=== PATIENT | female | born 1935 | race Caucasian/White ===

== ENCOUNTER 2019-06-17 13:28 | Inpatient (IN) | payer MEDICARE, OTHER ==
[~2019-06-17] VITALS: Ht 157.5 cm; Wt 103.6 kg
[~2019-06-17 13:28] MED LIST: AMOCLA875 PO; ASPI81CH PO; ATELVIA PO; ATOR80 PO; AZIT500 PO; BACL10 PO; BUME2 PO; BUPR150ER PO; Bumetanide1 MG PO; CARV6.25 PO; CEFU500 PO; CHOL10002 PO; CIPR250 PO; CLON1 PO; CLOP75 PO; CO Q10100 MG PO; Cilostazol50 MG PO; DILT120 PO; DOCSEN PO; DOCU100; DOCU100 PO; ENAL20; FAMO20 PO; FERR325 PO; FISH1000 PO; FURO40 PO; GABA300 PO; GLIM4; HYDACE10B PO; HYDACE5 PO; HYDR1TAB94; HYDR1TAB94 PO; HYOS.125; INSDET100 SQ; INSUASPI SC; IRON PO; IRON150C PO; LANS30EC; LISI5 PO; LOVA20; LOVA20 PO; METO2.5 PO; METO25ER PO; NITR.4SL SL; Novolog100 UNIT/1 SC; OMEG1CAP30 PO; OMEP20ER PO; ONDA4 PO; OXYB5ER PO; PANT40 PO; PARO30; POLY500; POTA10T PO; POTCHL20ER PO; PRELIEF PO; PROM25 PO; Prozac20 MG; ROSI4; SENN187; SIMBRINZA 1%-0.28 ML LEFTEYE; SIMBRINZA 1%-0.28 ML OP; SPIHYD; STOOL SOFTENER100 MG; TAZTIA XT360 MG PO; TRAACE PO; TRAM50 PO; TRAV.004OP BOTHEYES; TRAZ50 PO; Travatan Z5 ML BOTHEYES; UBID100 PO; VALTURNA PO; VENL150ER PO; Ventolin5 MG/1 ML INH; WARF5 PO
[2019-06-17 14:44] LABS: BASOPHILS ABSOLUTE AUTO 0.04 K/mm3 (0.00-0.23); BASOPHILS PERCENT AUTO 1 % (0-2); EOSINOPHILS ABSOLUTE AUTO 0.14 K/mm3 (0.00-0.68); EOSINOPHILS PERCENT AUTO 2 % (0-6); Hemoglobin 14.8 g/dL (11.5-16.0); IMMATURE GRAN ABSOLUTE AUTO 0.01 K/mm3 (0.00-0.10); IMMATURE GRAN PERCENT AUTO 0 % (0-1); LYMPHOCYTES ABSOLUTE AUTO 1.41 K/mm3 (0.84-5.20); LYMPHOCYTES PERCENT AUTO 18 % (21-46); MONOCYTES ABSOLUTE AUTO 0.44 K/mm3 (0.16-1.47); MONOCYTES PERCENT AUTO 6 % (4-13); Mean Corpuscular HGB 30.6 pg (26.0-34.0); Mean Corpuscular HGB Conc 32.9 g/dL (31.5-36.5); Mean Corpuscular Volume 93 fL (80-100); NEUTROPHILS ABSOLUTE AUTO 5.97 K/mm3 (1.96-9.15); NEUTROPHILS PERCENT AUTO 75 % (41-73); Platelet Count 186 K/mm3 (150-400); RDW Coefficient Variation 13.1 % (11.7-14.2); RDW Standard Deviation 44.5 fL (35.1-46.3); Red Blood Cell Count 4.84 M/mm3 (3.80-5.20); White Blood Cell Count 8.01 K/mm3 (4.00-11.30)
[2019-06-17 15:18] LABS: Albumin, Blood 3.5 g/dL (3.4-5.0); Albumin/Globulin Ratio 0.9 (0.8-1.8); Bilirubin, Total 0.4 mg/dL (0.1-1.0); Bun/Creatinine Ratio 56.6 (12.0-20.0); Calcium, Blood 13.8 mg/dL (8.5-10.1); Creatinine, Blood 2.26 mg/dL (0.40-1.00); Total Protein, Blood 7.5 g/dL (6.4-8.2); Troponin I 0.869 ng/mL (0.000-0.040)
[2019-06-17] MEDS ORDERED: SIMBRINZA 1%-0.28 ML RIGHTEYE (15:18)
[2019-06-17] MEDS ORDERED: INSDET100 SC (15:21)
[2019-06-17] MEDS ORDERED: NEURONTIN300 MG PO (15:23)
[2019-06-17] MEDS ORDERED: METO5 PO (15:23)
[2019-06-17] MEDS ORDERED: Bumetanide2 MG PO (15:39)
[2019-06-17] MEDS ORDERED: Ferus150 MG PO (15:40)
[2019-06-17 15:52] LABS: Source, Urine Clean Catch
[2019-06-17 15:59] LABS: Appearance, Urine Hazy (Clear); Bilirubin, Urine Neg (Neg); Blood, Urine Neg (Neg); Color, Urine Yellow (P-Yellow); Glucose Qualitative, Urine 2+ (Neg); Ketones, Urine Neg (Neg); Leukocyte Esterase, Urine 3+ (Neg); Nitrite, Urine Neg (Neg); Protein, Urine 1+ (Neg); Urobilinogen, Urine NORM (Normal)
[2019-06-17 16:24] LABS: Magnesium, Blood 2.4 mg/dL (1.6-2.4); Phosphorus, Blood 4.5 mg/dL (2.5-4.9)
[2019-06-17 16:25] LABS: White Blood Cells, Urine 25-50 /hpf (0-5)
[2019-06-17 16:26] LABS: Bacteria Many /hpf; Squamous Epithelial Cells Few /hpf (Few)
[2019-06-17] MEDS ORDERED: Lomotil Tablet1 EACH PO (16:49)
[2019-06-17] MEDS ORDERED: ACET500 PO (16:49)
[2019-06-17] MEDS ORDERED: THERA-D2000 UNIT PO (16:51)
--- NOTE | 2019-06-17 18:44 | NUR ---
PT ARRIVED FROM ER ALERT, ANSWERING QUESTIONS APPROPAITELY. DENIES CP OR SOB ON ARRIVAL. LS WITH FINE CRACKLES NOTES IN LOWER LOBES BILAT, BUT ARE OTHER STAFFORD RATHER DECREASED. 1+ EDEMA NOTED TO BILAT LOWER EXTREMETIES. PT WAS ABLE TO GET UP IN ER TO BSC WITH SBA. NO OBVIOUS WOUNDS OR SKIN BREAKDOWN NOTED. PT DRESSED DOWN UPON ARRIVAL BELONGINGS PLACED IN CLOSET
--- NOTE | 2019-06-17 21:45 | NUR ---
ASSUMED CARE Pt alert and oriented upon assessment. Answering questions appropriately, VSS, moves extremities independantly. Pt is significantly [place] and states "i left my hearing aides at home". Pt encouraged to have family member bring in hearing aides. Pt following all commands appropriately. LR infusing into LH at 150 mls/hr per orders. IV site WNL. Pt denies chest pain or pressure. Critical high troponin called to bedspread folder, Kevin Worrell and information passed along to this RN. Dr. Maharaj called and notified of cH value, orders recieved for cardiology consult. No changes in pt condition at this time. No changes on telemetry. Will continue to closely monitor for cardiac symptoms. See shift assessment for detailed systems assessment. No acute concerns to note at this time.
[2019-06-18 04:20] LABS: Bun/Creatinine Ratio 58.1 (12.0-20.0); Calcium, Blood 13.2 mg/dL (8.5-10.1); Creatinine, Blood 1.98 mg/dL (0.40-1.00); Potassium, Blood 2.9 mmol/L (3.5-5.5)
--- NOTE | 2019-06-18 04:24 | NUR ---
CRITICAL VALUE CALCIUM 13.2; CALL PLACED TO PROVIDER, AWAITING CALL BACK AT THIS TIME. AWAITING ORDERS. WILL CONTINUE TO MONITOR.
--- NOTE | 2019-06-18 06:35 | NUR ---
Shift Summary VSS this shift, pt alert and oriented, able to make needs known with call light. Multiple critical values (calcium and troponins) this shift; all documented as such. Pt with no acute declines to note overnight. No chest pain or pressure. no changes to mentation, no change in oxygen demand. Pt remains stable on RA. PIV patent and infusing LR at 150 per orders. Pt with no acute changes from initial shift assessment. no changes on tele. SBA to BSC. Pt pleasant, calm, and cooperative with care. Will continue to monitor until day RN assumes care.
--- NOTE | 2019-06-18 17:45 | NUR ---
SHIFT NOTE PT WAS QUITE CONFUSED THIS AM, PT WAS STATING THAT SHE COULD SEE THINGS THAT WOULD SUDDENLY DISAPPEAR. HALLUCINATIONS DID RESOLVE DURING THIS SHIFT. AROUND 1500 THIS EVENING BEGAN ANSWERING QUESTIONS, TELLING THIS RN STORIES ABOUT HER GRANDCHILDREN, PT RECALLS THAT SHE IS AT THE HOSPITAL, AND CAN RECALL THE NAMES ON HER 9 GREAT GRAND CHILDREN. PT DENIES ANY PAIN T/O THE SHIFT. AROUND 1500 PT BEGAN WITH NAUSEA, WITH A VERY SCANT AMOUNT OF VOMITTING, WAS TREATED WITH ZOFRAN WHICH DID NOT RESOLVE NASUEA FOR LONG, DR WARD CALLED AND NEW ORDER OBTAINED AT THIS TIME FOR PHENERGAN. PT DID HAVE ONE SMALL BM AT THE END OF SHIFT THAT WAS MUJICA AND SOFT. PT ROLLS SELF, TO CHANGE ATTENDS AND DIXON PAD.
--- NOTE | 2019-06-18 20:26 | NUR ---
PT TRANSFERED TO ICU 10 FROM PCU. PT WAS CODE BLUE IN PCU. PT IS INTUBATED. IRRATIC RHYTHM ON THE MONITOR AND PULSE WAS LOST. CODE STARTED AGAIN. SEE CODE FLOW SHEET. DR. SCOTT HERE AT BEDSIDE. SUE EDGE DRUMMER IS CALLING FAMILY.
[2019-06-18 20:45] LABS: BASOPHILS ABSOLUTE AUTO 0.07 K/mm3 (0.00-0.23); BASOPHILS PERCENT AUTO 1 % (0-2); EOSINOPHILS ABSOLUTE AUTO 0.12 K/mm3 (0.00-0.68); EOSINOPHILS PERCENT AUTO 1 % (0-6); Hematocrit 43.1 % (33.0-51.0); Hemoglobin 13.8 g/dL (11.5-16.0); Mean Corpuscular HGB 31.2 pg (26.0-34.0); NRBC ABSOLUTE 0.04 K/mm3 (0.00-0.02); NRBC Auto 0.3 /100 WBC (0.0-0.2); RDW Coefficient Variation 13.2 % (11.7-14.2); RDW Standard Deviation 47.7 fL (35.1-46.3); Red Blood Cell Count 4.42 M/mm3 (3.80-5.20); White Blood Cell Count 13.34 K/mm3 (4.00-11.30)
--- NOTE | 2019-06-18 20:46 | NUR ---
PULSE WAS RESTORED WITH ACLS. THE FAMILY IS HERE AND BEING UPDATED BY DR. SCOTT.
[2019-06-18 20:51] LABS: IMMATURE GRAN ABSOLUTE AUTO 0.74 K/mm3 (0.00-0.10); IMMATURE GRAN PERCENT AUTO 6 % (0-1); LYMPHOCYTES ABSOLUTE AUTO 6.43 K/mm3 (0.84-5.20); LYMPHOCYTES PERCENT AUTO 48 % (21-46); MONOCYTES PERCENT AUTO 2 % (4-13); Mean Corpuscular Volume 98 fL (80-100); Mean Platelet Volume 11.4 fL (9.1-12.4); NEUTROPHILS ABSOLUTE AUTO 5.68 K/mm3 (1.96-9.15); NEUTROPHILS PERCENT AUTO 43 % (41-73); Platelet Count 86 K/mm3 (150-400)
--- NOTE | 2019-06-18 20:57 | NUR ---
CODE NOTE This RN assume care of pt at approx 1915. Upon assessment, pt lethargic but oriented. Pt able to increase alertness when sat up in bed in high peoples, lights turned on in room, and instructions direct and simple. Pt able to answer orientation questions appropriately. VSS. Breathing even and unlabored on RA. Upon skin assessment, this RN noticed that pt's skin is dry. This RN talking with pt while applying lotion when pt suddenly became unresponsive. Pulse not detected and wilbert rocha called at 1944. CPR initiated. Code team arrived. waste transportation technician report of torsades; strips in chart. See code blue sheet for interventions. Pt transferred to ICU 10
[2019-06-18 20:59] LABS: International Normalized Ratio 1.09; Prothrombin Time Results 11.5 Sec (9.7-11.5)
[2019-06-18 21:04] LABS: Magnesium, Blood 2.1 mg/dL (1.6-2.4)
[2019-06-18 21:09] LABS: Bun/Creatinine Ratio 59.1 (12.0-20.0); Calcium, Blood 13.7 mg/dL (8.5-10.1); Creatinine, Blood 1.64 mg/dL (0.40-1.00); Phosphorus, Blood 5.3 mg/dL (2.5-4.9); Potassium, Blood 2.4 mmol/L (3.5-5.5); Troponin I 1.73 ng/mL (0.000-0.040)
[2019-06-18 21:17] LABS: BAND PERCENT MAN 12 % (0-8); BASOPHILS PERCENT MAN 0 % (0-2); EOSINOPHILS PERCENT MAN 0 % (0-6); LYMPHOCYTES ABSOLUTE MAN 6.67 K/mm3 (0.84-5.20); LYMPHOCYTES PERCENT MAN 50 % (21-46); METAMYELOCYTE ABSOLUTE MAN 0.66 K/mm3 (0.00-0.00); METAMYELOCYTE PERCENT MAN 5 % (0-0); MONOCYTES ABSOLUTE MAN 0.13 K/mm3 (0.16-1.47); MONOCYTES PERCENT MAN 1 % (4-13); NEUTROPHILS ABSOLUTE MAN 5.86 K/mm3 (1.96-9.15); SEG NEUTROPHILS PERCENT MAN 32 % (41-73); TOTAL CELLS COUNTED 100
--- NOTE | 2019-06-18 21:45 | NUR ---
FAMILY AT THE BEDSIDE WITH PT. PT HAS A RHYTHM ON THE MONITOR. PULSE IS FAINT AND THREADY. FAMILY HAD EXPRESSED TO DR. SCOTT THAT THEY DID NOT WANT CPR DONE AGAIN AND "LET NATURE TAKE IT'S COARSE" PER THE . EXPRESSES UNDERSTANDING THAT PT WILL NOT HAVE A GOOD QUALITY OF LIFE AFTER CODING. CALLED DR. SCOTT AND GOT DNR ORDER AND ALSO OK WITH STOPPING ACLS MEDS. STILL INTUBATED ON THE VENT, DR. SCOTT SAID OK TO EXTUBATE WHEN FAMILY IS READY. FAMILY IS WAITING FOR ANOTHER FAMILY MEMBER TO COME IN. IMPERSONATOR CHARACTER AT BEDSIDE.
--- NOTE | 2019-06-18 22:16 | NUR ---
Upon receiving a Call from ANN Henry, explaining that the family of patient is requesting a talent director, I conducted a visit. Several family members were present and I led the family in a life review of patient and learned about the family, the patient's samar[employer] background ([employer]) and the patient medical history. I listened empathically and provided prayer. I will continue to remain available to patient and family.
--- NOTE | 2019-06-18 23:01 | NUR ---
PT EXTUBATED PER AND FAMILY'S REQUEST. EDUCATED FAMILY ON WHAT TO EXPECT FOR END OF LIFE. DECLINES COMFORT MEDS AT THIS POINT. PT DOES NOT SEEM TO BE STRUGGLING. PT WAS NEVER RESPONSIVE AFTER INITIAL CODE BLUE.
--- NOTE | 2019-06-18 23:16 | NUR ---
2305 PT HAS NO PULSE. PT PASSED PEACEFULLY WITH FAMILY AT BEDSIDE. FAMILY SEEMS TO BE SUPPORTIVE OF EACH OTHER AND APPROPRIATE WITH DECISION MAKING. WILL LET DR. SCOTT KNOW OF PASSING.
--- NOTE | 2019-06-18 23:44 | NUR ---
NURSING SCAFFOLDER DANIEL DID FINAL DISCHARGE. CALLED DR. SCOTT TO LET HIM KNOW OF PASSING. FAMILY TOOK ALL BELONGINGS AND ALL JEWLERY.
== END 2019-06-18 23:05 | DRG 70 ==
LOC: ER 13:28 → PCU 13:29 → ICUW 18:24 → PCU 06-18 16:22 → ICUW 06-18 20:15
PROVIDERS: Internal Medicine; Physician Assistant; ADMIT Internal Medicine
PROC: 5A2204Z Restoration of Cardiac Rhythm, Single (ICD-10-PCS; principal; 2019-06-18)
PROC: 5A12012 Performance of Cardiac Output, Single, Manual (ICD-10-PCS; 2019-06-18)
PROC: 0BH17EZ Insertion of Endotracheal Airway into Trachea, Via Natural or Artificial Opening (ICD-10-PCS; 2019-06-18)
PROC: 5A1935Z Respiratory Ventilation, Less than 24 Consecutive Hours (ICD-10-PCS; 2019-06-18)
DX: G93.41 Metabolic encephalopathy (principal); I21.4 Non-ST elevation (NSTEMI) myocardial infarction; N17.0 Acute kidney failure with tubular necrosis; N39.0 Urinary tract infection, site not specified; I48.20 Chronic atrial fibrillation, unspecified; N25.81 Secondary hyperparathyroidism of renal origin; Z68.41 Body mass index [BMI] 40.0-44.9, adult; I34.0 Nonrheumatic mitral (valve) insufficiency; K21.9 Gastro-esophageal reflux disease without esophagitis; F41.8 Other specified anxiety disorders; Z79.82 Long term (current) use of aspirin; E83.52 Hypercalcemia; E86.0 Dehydration; N18.3 Chronic kidney disease, stage 3 (moderate); E11.22 Type 2 diabetes mellitus with diabetic chronic kidney disease; I25.10 Atherosclerotic heart disease of native coronary artery without angina pectoris; I49.01 Ventricular fibrillation; I46.8 Cardiac arrest due to other underlying condition; E11.51 Type 2 diabetes mellitus with diabetic peripheral angiopathy without gangrene; D64.9 Anemia, unspecified; E66.01 Morbid (severe) obesity due to excess calories; E11.42 Type 2 diabetes mellitus with diabetic polyneuropathy; Z79.4 Long term (current) use of insulin; E87.6 Hypokalemia; I12.9 Hypertensive chronic kidney disease with stage 1 through stage 4 chronic kidney disease, or unspecified chronic kidney disease
CPT/HCPCS: 31500; 31720; 36415; 71045; 71046; 76770; 80048; 80053; 81001; 82947; 83605; 83735; 83880; 83970; 84100; 84443; 84484; 85025; 85610; 85730; 87086; 92950; 93005; 93010; 94002; 96361; 96365; 96372; 96375; 99285-25; G0378; J0282; J0461; J0630; J0696; J1265; J1644; J2405; J3480; J7030; J7120